=== PATIENT | male | born 1945 | race Two or more races ===

== ENCOUNTER 2019-11-07 19:12 | Inpatient (IN) | payer MEDICARE ==
[~2019-11-07] VITALS: Ht 172.7 cm; Wt 72.1 kg
--- NOTE | ~2019-11-07 | RHP ---
PATIENT: MATHEW MIXON MEDICAL RECORD: [id number] ACCOUNT: [id number] LOCATION:[facility]1115 : 47 ADMISSION DATE: 11/07/19 REHABILITATION HISTORY AND PHYSICAL EXAMINATION POST ADMISSION PHYSICIAN EXAMINATION ADMITTING DIAGNOSIS: Lower extremity amputation. HISTORY OF PRESENT ILLNESS: The patient is a 74-year-old gentleman admitted secondary to left lower extremity amputation, status post a left BKA, got a history of coronary artery disease, coronary artery bypass grafting, congestive heart failure, hypertension, hyperlipidemia, presented from home on 11/01/2019 with left foot infection after having a transmetatarsal amputation 45 days prior to this, it really never healed. He had bloody serosanguineous drainage from the area, could no longer bear weight. The patient's x-rays showed no signs of osteo at that time. He was admitted to [facility]. He was given 2 units of blood secondary to chronic anemia. He is , he had previously lived with his daughter and granddaughter. He does not speak much Cook Islander, but his granddaughter does. Been using an interpreter translator as needed. He had been moderately independent with ADLs and transfers with a wheelchair. He was home making meal preparation and personal care for med access and preparation. Currently, he is pretty fragile, risk for complications and needs to be involved in therapy and medical management. He is mod to max assist for ADLs and transfers. He wants to regain his strength and hopefully be able to transfer on his own to his wheelchair. COMORBIDITIES: Include anemia, cellulitis, congestive heart failure, chronic kidney disease, decrease in mobility, essential hypertension, fatigue, weakness. PAST MEDICAL HISTORY: Significant for coronary artery disease. He has got a history of heart failure, peripheral vascular disease, hypertension and hyperlipidemia. PAST SURGICAL HISTORY: Includes transmetatarsal amputation bilaterally. He is now status post left [id number] amputation. ALLERGIES: No known drug allergies. CURRENT MEDICATIONS: Include Lipitor 80 mg at dinner, he is on lisinopril 2.5 mg daily, MiraLax 17 grams in 8 ounces of water daily, he is on aspirin 81 mg daily, Trental 400 mg b.i.d. with meals, NovoLog 70/30 20 units prior to meals and at dinner, he is on a low-resistant sliding scale, Colace 100 mg b.i.d., Zofran 4 mg every 4 hours p.r.n., Nitrostat p.r.n., [place] 5/325 one tab every 4 to 6 hours p.r.n., Ancef 2 grams every 8 hours and senna as needed. HABITS: No alcohol or tobacco use. FAMILY HISTORY: Noncontributory. SOCIAL HISTORY: The patient hopes to return back home with his family and get back to his prior level of functioning. REVIEW OF SYSTEMS: GENERAL: Does complain of weakness and fatigue. HEENT: Denies cold, cough, or congestion. HISTORY AND PHYSICAL [id number] CARDIOVASCULAR: Has complained of some pain this morning in his chest region. PHYSICAL EXAMINATION: VITAL SIGNS: Stable. He is afebrile. GENERAL: An elderly gentleman in no acute distress upon exam. HEENT: Normocephalic and atraumatic. Mucosa moist. NECK: Supple. No lymphadenopathy. LUNGS: Clear in upper pop. HEART: Regular rate and rhythm. ABDOMEN: Benign. EXTREMITIES: No clubbing, cyanosis. Postop area looks pretty good at this time. He is noted to have a left bymxg-pom-mmvr amputation. NEUROLOGIC: He does have proximal muscle weakness. LABORATORY DATA: His white count is 7.4, H&H of 9.7 and 29.9, and platelet count is 443. His sodium is 134, potassium 4.0, BUN and creatinine of 15 and 1.2, and blood sugar is noted to be 67. ASSESSMENT: This is a 74-year-old gentleman, who presents to rehab with a working diagnosis of left [id number]-[id number]-[id number] amputation. The patient has potential to make improvement. We instituted the following multidisciplinary therapies including, but not limited to physical, occupational, respiratory, speech, nutritional services, prosthetics and orthotics. Given his complex medical condition and risks for more complications, rehabilitation services cannot be provided at a low level of care such a fpc facility. PLAN: 1. Admit to [facility] for inpatient therapy to include the following disciplines; A. Physical therapy to improve gait, all transfer skills and bed mobility to a modified independent level. B. Occupational therapy to improve activities of daily living. C. Case management to help with discharge planning and placement options. D. Nutrition to assist with nutritional needs. E. Rehabilitation nursing to assist in monitoring the patient's underlying medical conditions and to assist with any type of bowel or bladder management. 2. The patient's current medication and medical care will be continued. 3. Placed on standard fall precautions. 4. The patient's estimated length of stay is approximately 7-10 days. 5. We will discuss this patient during care team staff meeting this week. I am going to go ahead and check cardiac enzymes on this morning and will followup. TRANSINT:[id number] Voice Confirmation ID: [id number] DOCUMENT ID: [id number] MINDI notes whether there has been none or any medical/functional change since admission: - No change since preadmission screen. MINDI attests patient continues to be appropriate for IRF: - Continues to be appropriate. HISTORY AND PHYSICAL [id number] MATHEW MIXON JOHN SCOTT MD CC: [id number] DICTATION DATE: 11/08/19909 DAUB COLOR MIXER: 11/08/19938 ADM IN [facility] [address] [id number]
--- NOTE | 2019-11-07 20:00 | NUR ---
HERE FOR ADMISSION TO [facility] OF DR MONTESINOS. AWAKE AND ALERT. RESPIRATIONS UNLABORED. SPAINISH SPEAKING ONLY. INTERPRETOR PHONE IN ROOM FOR TRANSLATION. DAUGHTER SPEAKS SOME CENTRAL AFRICAN AND IS ABLE TO SIGN PAPERS AND ANSWER SOME QUESTIONS. SEE ADMISSION ASSESSMENT. NOTED LEFT BKA. SALINE LOCK INTACT TO LEFT AC WITH NO SIGNS OF INFILTRATION. INSTRUCTED ON USE OF CALL LIGHT. RETURN DEMONSTRATION DONE. FALL PRECAUTIONS IN PLACE.
[2019-11-07 21:12] VITALS: BP 181/73
[2019-11-07 22:45] VITALS: BP 181/73; BMI 24.2
[2019-11-07] MEDS ORDERED: BAYER CHEWABLE81 MG PO (23:32)
[2019-11-07] MEDS ORDERED: LIPITOR80 MG PO (23:33)
[2019-11-07] MEDS ORDERED: ANCEF/KEFZOL INJ1 GM IV (23:34)
[2019-11-07] MEDS ORDERED: COLACE100 MG PO (23:35)
[2019-11-07] MEDS ORDERED: MIRALAX17 GM PO (23:36)
[2019-11-07] MEDS ORDERED: EX-LAX15 MG PO (23:38)
[2019-11-07] MEDS ORDERED: HYDROCODON-ACE1 EAC7 PO (23:44)
[2019-11-07] MEDS ORDERED: LISINOPRIL2.5 MG PO (23:48)
--- NOTE | 2019-11-08 00:19 | NUR ---
SLEEPING WITH RESPRIAITONS UNLABORED. NO DISTRESS NOTED.
[2019-11-08] MEDS ORDERED: TRENTAL PO (02:40)
[2019-11-08] MEDS ORDERED: NOVOLOG 70-30 SQ (02:42)
--- NOTE | 2019-11-08 02:55 | NUR ---
CONTINUES SLEEPING WITH RESPIRATIONS UNALBORED. NO DISTRESS NOTED. ADAN PATENT. IV INTACT.
[2019-11-08 05:27] LABS: BILIRUBIN NEGATIVE (NEGATIVE); KETONE NEGATIVE (NEGATIVE); NITRITE NEGATIVE (NEGATIVE); UROBILINOGEN NORMAL (NORMAL)
[2019-11-08 05:28] LABS: BACTERIA FEW /hpf (NONE SEEN); EPITHELIAL CELLS 0-5 /hpf (0-5); YEAST >1+ WITH HYPHAE /hpf (NONE SEEN)
[2019-11-08 06:18] LABS: BASOPHILS 0.1 % (0-2); EOSINOPHILS 4.2 % (0-7); HEMATOCRIT 29.9 % (42.0-54.0); HEMOGLOBIN 9.7 g/dL (13.5-17.5); IMMATURE GRANULOCYTES 0.8 % (0-5); LYMPHOCYTES 19.9 % (15-50); MCH 26.6 pg (26.0-34.0); MCHC 32.4 g/dL (31.0-37.0); MCV 82.1 fL (80.0-100.0); MONOCYTES 5.6 % (2-11); NEUTROPHILS 69.4 % (40-80); PLATELET COUNT 443 10x3/uL (130-400); RBC 3.64 10x6/uL (4.20-6.10); RDW 18.5 % (11.5-14.5); WBC 7.4 10x3/uL (4.8-10.8)
[2019-11-08 06:22] LABS: ANION GAP 10.1 mmol/L (8-16); CALCIUM 8.8 mg/dL (8.5-10.1); CARBON DIOXIDE 26.9 mmol/L (21.0-32.0); CREATININE - SERUM 1.2 mg/dL (0.6-1.3)
--- NOTE | 2019-11-08 07:30 | NUR ---
SHIFT ASSMT COMPLETED.BREAKFAST GIVEN.
[2019-11-08 08:00] VITALS: BP 164/77
--- NOTE | 2019-11-08 08:45 | NUR ---
CO CHEST PAIN A 6 ON SCALE OF 1-10.LAB NOTIFIED FOR CE'S.EKG DONE. ON FLOOR.
--- NOTE | 2019-11-08 09:32 | NUR ---
LAB NOTIFIED OF NEEDING CE'S.STATED THEY WILL COME.
--- NOTE | 2019-11-08 09:40 | NUR ---
STATES PAIN IS GONE.CHEST PAIN SUBSIDED.
[2019-11-08 10:15] LABS: CKMB 0.9 U/L (0.0-3.6); CREATINE KINASE 53 UL (21-232); TROPONIN-I < 0.017 ng/mL (0.000-0.060)
[2019-11-08 14:09] VITALS: Ht 172.7 cm; Wt 72.1 kg
--- NOTE | 2019-11-08 15:36 | NUR ---
CARE TEAM MEETING: PATIENT IS NEW TO UNIT. HE WILL BE RA AT NEXT MEETING. WILL CONTINUE TO FOLLOW WITH PATIENT.
[2019-11-08 15:51] LABS: CKMB 1.1 U/L (0.0-3.6); CREATINE KINASE 58 UL (21-232); TROPONIN-I < 0.017 ng/mL (0.000-0.060)
--- NOTE | 2019-11-08 19:38 | NUR ---
RECEIVED PT LYING IN BED SUPINE EYES CLOSED RESTING. EASILY AROUSED WITH STIMULI. C/O GENERALIZED PAIN 5/10 REQUESTS PAIN MEDICATION. ASSISTED TO RESTROOM WITH MOD ASSIST. LEFT FOREARM IV WITHOUT REDNESS OR SWELLING. DRESSING INTACT. LEFT BKA DRESSING INTACT. NO SIGNS OF ACUTE DISTRESS NOTED. CALL LIGHT WITHIN REACH. FALL PRECAUTIONS IN PLACE. CPOC
[2019-11-08 20:47] VITALS: BP 167/77
[2019-11-08 23:37] LABS: CKMB 0.9 U/L (0.0-3.6); CREATINE KINASE 50 UL (21-232); TROPONIN-I 0.022 ng/mL (0.000-0.060)
--- NOTE | 2019-11-09 01:40 | NUR ---
PT LYING IN BED EYES CLOSED RESTING COMFORTABLY. RR EVEN AND UNLABORED. CALL LIGHT WITHIN REACH. FALL PRECAUTIONS IN PLACE. WILL CONTINUE TO MONITOR
--- NOTE | 2019-11-09 03:57 | NUR ---
PT LYING IN BED EYES CLOSED RESTING COMFORTABLY. RR EVEN AND UNLABORED. CALL LIGHT WITHIN REACH. CPOC
[2019-11-09 08:00] VITALS: BP 170/84
--- NOTE | 2019-11-09 19:05 | NUR ---
RECEIVED PT LYING IN BED EYES CLOSED RESTING COMFORTABLY. EASILY AROUSED WITH VERBAL STIMULI. LEFT FOREARM IV WITHOUT REDNESS OR SWELLING DRESSING AND SWAB CAPS INTACT. LEFT BKA DRESSING CLEAN, DRY, AND INTACT CHANGED TODAY. NO SIGNS OF ACUTE DISTRESS NOTED. CALL LIGHT AND URINAL WITHIN REACH. FALL PRECAUTIONS IN PLACE. CPOC
[2019-11-09 19:49] VITALS: BP 172/78
--- NOTE | 2019-11-10 00:49 | NUR ---
PT LYING IN BED SUPINE EYES CLOSED RESTING COMFORTABLY. HOB ELEVATED. RR EVEN AND UNLABORED. EMPTIED URINAL 300ML. CALL LIGHT WITHIN REACH. FALL PRECAUTIONS IN PLACE. CPOC
--- NOTE | 2019-11-10 03:17 | NUR ---
PT LYING IN BED AWAKE. REQUESTS COFFEE. DENIES ANY PAIN. NO SIGNS OF ACUTE DISTRESS NOTED. CALL LIGHT WITHIN REACH. FALL PRECAUTIONS IN PLACE. CPOC
[2019-11-10 07:50] VITALS: BP 142/71
[2019-11-10 07:59] LABS: ANION GAP 13.3 mmol/L (8-16); CALCIUM 8.6 mg/dL (8.5-10.1); CARBON DIOXIDE 25.7 mmol/L (21.0-32.0); CREATININE - SERUM 1.1 mg/dL (0.6-1.3)
--- NOTE | 2019-11-10 08:00 | NUR ---
PATIENT IS ALERT/ORIENT. GREENLANDIC SPEAKING. SPEAKS A LITTLE BIT OF JAPANESE. CALL LIGHT WITHIN REACH. VOICES NO NEEDS AT THIS TIME.
[2019-11-10 08:38] LABS: BASOPHILS 0 % (0-2); EOSINOPHILS 5.8 % (0-7); HEMATOCRIT 28.3 % (42.0-54.0); HEMOGLOBIN 9.1 g/dL (13.5-17.5); IMMATURE GRANULOCYTES 0.3 % (0-5); LYMPHOCYTES 27.2 % (15-50); MCH 26.5 pg (26.0-34.0); MCHC 32.2 g/dL (31.0-37.0); MCV 82.5 fL (80.0-100.0); MEAN PLATELET VOLUME 7.9 fL (7.4-10.4); MONOCYTES 5.8 % (2-11); NEUTROPHILS 60.9 % (40-80); PLATELET COUNT 441 10x3/uL (130-400); RBC 3.43 10x6/uL (4.20-6.10); RDW 18.7 % (11.5-14.5); WBC 6.3 10x3/uL (4.8-10.8)
--- NOTE | 2019-11-10 10:06 | NUR ---
PATIENT IN REHAB. WORKING WITH OCCUPATIONAL THERAPIST.
--- NOTE | 2019-11-10 18:45 | NUR ---
I have reviewed this patient and I concur with the Shift Assessment completed by the Licensed Practical Nurse today this shift.
--- NOTE | 2019-11-10 19:15 | NUR ---
RECEIVED PT LYING IN BED AWAKE. ALERT AND ORIENTED X4. DENIES ANY NEEDS OR PAIN. LEFT FOREARM IV WITHOUT REDNESS OR SWELLING. DRESSING AND SWAB CAPS INTACT. URINAL EMPTIED 400ML CLEAR YELLOW. NO SIGNS OF ACUTE DISTRESS NOTED. CALL LIGHT AND WATER WITHIN REACH. FALL PRECAUTIONS IN PLACE. CPOC
[2019-11-10 20:30] VITALS: BP 151/78
--- NOTE | 2019-11-10 23:50 | NUR ---
PT LYING IN BED ON RIGHT SIDE EYES CLOSED RESTING. RR EVEN AND UNLABORED. CALL LIGHT AND WATER WITHIN REACH. FALL PRECAUTIONS IN PLACE. CPOC
--- NOTE | 2019-11-11 03:18 | NUR ---
PT LYING IN BED ON LEFT SIDE EYES CLOSED RESTING. NO SIGNS OF ACUTE DISTRESS NOTED. WILL CONTINUE TO MONITOR
--- NOTE | 2019-11-11 05:59 | NUR ---
PT LYING IN BED EYES CLOSED RESTING QUIETLY. REMOVED OLD DRESSING LBKA. CLEANSED INCISION WITH WOUND CLEANSER, PAT DRY WITH 4X4, PAINTED WITH BETADINE, COVERED WITH BORDER GAUZE DRESSING. DATE, TIME, INITALED. INCISION WITH TAMI INTACT. WELL APPROXIMATED. NO REDNESS, SWELLING, OR DRAINAGE NOTED. NO ACUTE CHANGES IN CONDITION NOTED THIS SHIFT. CALL LIGHT AND WATER WITHIN REACH. FALL PRECAUTIONS IN PLACE. FSBS 144. WILL CONTINUE TO MONITOR
[2019-11-11 07:31] VITALS: BP 157/79
--- NOTE | 2019-11-11 13:29 | NUR ---
SITTING UP IN WC IN ROOM. SON IN VISITING HIM AND HELPING HIM SHAVE. IS ABLE TO TRANSFER BACK/FORTH FROM WC TO BED BY SELF. HE WOULD NOT LET NURSE HELP HIM.
--- NOTE | 2019-11-11 17:42 | NUR ---
NURSE ASST PT TO HAVE LARGE BM. HE WAXS VERY CONSTIPATED AND WAS GIVEN SUPPISITORY. SUCCESS.
[2019-11-11 19:49] VITALS: BP 140/66
--- NOTE | 2019-11-11 19:58 | NUR ---
AWAKE AND ALERT. RESTING IN BED WITH RESPIRATIONS UNLABORED. NO ACUTE DISTRESS NOTED. CALL LIGHT IN REACH. C JAVA DEVELOPER PHONE IN ROOM TO USE NEEDED.
--- NOTE | 2019-11-12 02:58 | NUR ---
SLEEPING WITH RESPIRATIONS UNLABORED. NO DISTRESS NOTED.
--- NOTE | 2019-11-12 05:11 | NUR ---
QUIET HOURS. NO ACUTE CHANGES IN CONDITION THIS SHIFT. DRESSING TO LEFT BKA SITE DRY AND INTACT. NO DISTRESS NOTED. CALL LIGHT IN REACH.
[2019-11-12 07:44] VITALS: BP 144/88
--- NOTE | 2019-11-12 13:20 | NUR ---
LAYING IN BED RESTING QUIETLY. SON HAS BEEN HERE VISITING TODAY. HE DENIES NEEDS. HAS INTURPRETER PHONE BY BED. CALL LIGHT IN REACH
[2019-11-12 19:34] VITALS: BP 133/61
--- NOTE | 2019-11-12 19:37 | NUR ---
AWAKE AND ALERT. RESTING IN BED WITH RESPRIATIONS UNLABORED. DRESSING TO LEFT BKA SITE DRY AND INTACT. LEFT FOREARM SALINE LOCK INTACT WITH NO SIGNS OF INFILTRATION. NO DISTRESS NOTED. CALL LIGHT IN REACH.
--- NOTE | 2019-11-12 19:40 | NUR ---
BLOOD SUGAR 65. ALERT AND ORIENTED. SKIN WARM AND DRY. HS SNACK GIVEN WITH PUDDING AND ORANGE JUICE AND CRACKERS.
--- NOTE | 2019-11-13 02:13 | NUR ---
SLEEPING WITH RESPIRATIONS UNLABORED. NO DISTRESS NOTED.
--- NOTE | 2019-11-13 03:30 | NUR ---
CONTINUES SLEEPING. NO DISTRESS NOTED.
--- NOTE | 2019-11-13 05:01 | NUR ---
QUIET HOURS. NO ACUTE CHANGES IN CONDITION THIS SHIFT. DRESSING INTACT TO LEFT BKA. NO DISTRESS NOTED.
[2019-11-13 08:00] VITALS: BP 132/55
[2019-11-13 08:28] LABS: BASOPHILS 0.5 % (0-2); EOSINOPHILS 5.2 % (0-7); HEMATOCRIT 29.7 % (42.0-54.0); HEMOGLOBIN 9.4 g/dL (13.5-17.5); IMMATURE GRANULOCYTES 0.3 % (0-5); LYMPHOCYTES 34.7 % (15-50); MCH 26.5 pg (26.0-34.0); MCHC 31.6 g/dL (31.0-37.0); MCV 83.7 fL (80.0-100.0); MEAN PLATELET VOLUME 7.9 fL (7.4-10.4); MONOCYTES 6.6 % (2-11); NEUTROPHILS 52.7 % (40-80); PLATELET COUNT 392 10x3/uL (130-400); RBC 3.55 10x6/uL (4.20-6.10); RDW 18.8 % (11.5-14.5); WBC 6.3 10x3/uL (4.8-10.8)
[2019-11-13 08:42] LABS: ANION GAP 11.8 mmol/L (8-16); CALCIUM 8.7 mg/dL (8.5-10.1); CARBON DIOXIDE 25.2 mmol/L (21.0-32.0); CREATININE - SERUM 1.1 mg/dL (0.6-1.3)
--- NOTE | 2019-11-13 13:31 | NUR ---
Nutrition Follow-up: Diet: Diabetic PO intake: ~75% average. Patient tells me that his appetite is "good." He denies needs from dietary at this time. Last BM: 11/11/19. Wt: 159# (11/08/19) Meds noted: miralax, novolog 70/30, SSI, senokot Labs noted: Na 133(L), Glu 133(H) Recommend continue current diet. RD following.
--- NOTE | 2019-11-13 20:00 | NUR ---
AWAKE AND ALERT. RESTING IN BED WITH RESPIRATIONS UNLABORED. DRESSING INTACT TO LEFT BKA. NO DISTRESS NOTED.
[2019-11-13 20:45] VITALS: BP 121/55
--- NOTE | 2019-11-14 00:10 | NUR ---
SLEEPING WITH RESPIRATIONS UNLABORED. NO DISTRESS NOTED.
--- NOTE | 2019-11-14 02:55 | NUR ---
CONTINUES SLEEPING WITH RESPIRATIONS UNLABORED. NO DISTRESS NOTED. CALL LIGHT IN REACH.
--- NOTE | 2019-11-14 04:52 | NUR ---
QUIET HOURS. NO ACUTE CHANGES IN CONDITION THIS SHIFT. RESTING IN BED WITH NO DISTRESS NOTED.
[2019-11-14 08:10] VITALS: BP 123/72
--- NOTE | 2019-11-14 19:05 | NUR ---
RECEIVED PT LYING IN BED AWAKE. ALERT AND ORIENTED X4. DENIES ANY PAIN OR NEEDS. LBA DRESSING INTACT. LEFT FOREARM SL WITHOUT REDNESS OR SWELLING. DRESSING INTACT. CALL LIGHT AND URNIAL WITHIN REACH. FALL PRECAUTIONS IN PLACE. CPOC
[2019-11-14 19:23] VITALS: BP 170/77
--- NOTE | 2019-11-14 23:11 | NUR ---
QUIET HOURS. PT LYING IN BED SUPINE EYES CLOSED RESTING QUIETLY. HOB ELEVATED. RR EVEN AND UNLABORED. CALL LIGHT AND URINAL WITHIN REACH. WILL CONTINUE TO MONITOR
--- NOTE | 2019-11-15 01:49 | NUR ---
PT LYING IN BED ON RIGHT SIDE EYES CLOSED RESTING. RR EVEN AND UNLABORED. WILL CONTINUE TO MONITOR
--- NOTE | 2019-11-15 04:21 | NUR ---
PT LYING IN BED EYES CLOSED RESTING. NO SIGNS OF ACUTE DISTRESS NOTED. CALL LIGHT WITHIN REACH.
--- NOTE | 2019-11-15 06:35 | NUR ---
PT SITTING UP IN BED WATCHING TV. MORNING SNACK PROVIDED MARIA DOLORES CRACKERS AND COFFEE. DENIES ANY PAIN OR NEEDS. CALL LIGHT AND URINAL WITHIN REACH. NO ACUTE CHANGES IN CONDITION NOTED THIS SHIFT. WILL CONTINUE TO MONITOR
[2019-11-15 07:47] LABS: BASOPHILS 0.5 % (0-2); EOSINOPHILS 4.9 % (0-7); HEMATOCRIT 32.2 % (42.0-54.0); HEMOGLOBIN 10.2 g/dL (13.5-17.5); IMMATURE GRANULOCYTES 0.3 % (0-5); LYMPHOCYTES 33.8 % (15-50); MCH 26.6 pg (26.0-34.0); MCHC 31.7 g/dL (31.0-37.0); MCV 83.9 fL (80.0-100.0); MEAN PLATELET VOLUME 8.1 fL (7.4-10.4); MONOCYTES 6.9 % (2-11); NEUTROPHILS 53.6 % (40-80); PLATELET COUNT 401 10x3/uL (130-400); RBC 3.84 10x6/uL (4.20-6.10); RDW 19.1 % (11.5-14.5); WBC 5.9 10x3/uL (4.8-10.8)
[2019-11-15 07:48] LABS: ANION GAP 9.8 mmol/L (8-16); CALCIUM 8.9 mg/dL (8.5-10.1); CREATININE - SERUM 1.1 mg/dL (0.6-1.3)
[2019-11-15 07:49] LABS: POTASSIUM - SERUM 4.8 mmol/L (3.5-5.1)
[2019-11-15 08:00] VITALS: BP 122/64
--- NOTE | 2019-11-15 08:00 | NUR ---
SHIFT ASSMT COMPLETED.BREAKFAST GIVEN.CL IN REACH.
--- NOTE | 2019-11-15 15:01 | NUR ---
CARE TEAM MEETING: PATIENT IS DOING WELL IN THERAPY. TENATIVE DC DATE IS 11/23/19. PATIENT WILL DC TO THE [facility] TO CONINUE HIS ANTIBIOTICS THEN WILL DC HOME. WILL CONTINUE TO FOLLOW WITH PATIENT.
--- NOTE | 2019-11-15 19:50 | NUR ---
PT LYING IN BED AWAKE. ALERT AND ORIENTED X4. DENIES ANY NEEDS OR PAIN. NO SIGNS OF ACUTE DISTRESS NOTED. LEFT FOREARM IV WITHOUT REDNESS OR SWELLING. DRESSING AND SWAB CAPS INTACT. LBKA DRESSING CLEAN AND INTACT. CALL LIGHT AND URINAL WITHIN REACH. FALL PRECAUTIONS IN PLACE. CPOC
[2019-11-15 19:52] VITALS: BP 153/71
--- NOTE | 2019-11-15 20:15 | NUR ---
RESITED IV TO RIGHT FOREARM 22G X1 ATTEMPT. FLUSHES AND DRAWS WITHOUT DIFFICULTY. DRESSING AND SWAB CAPS INTACT. LEFT FOREARM IV DC WITH CATH TIP INTACT. PRESSURE DRESSING APPLIED. PT TOLERATED WELL.
--- NOTE | 2019-11-15 20:35 | NUR ---
REMOVED OLD LBKA DRESSING. SCANT AMOUNT OF DARK RED DRAINAGE NOTED. INCISION WITHOUT REDNESS OR SWELLING. SUTURE LINE WELL APPROXIMATED. TAMI INTACT. CLEANSED INCISION WITH WOUND CLEANSER, PAT DRY 4X4, PAINTED INCISION WITH BETADINE, COVERED WITH BORDER GAUZE DRESSING. DATE, TIME, INITIALED. PT TOLERATED WELL.
--- NOTE | 2019-11-15 22:57 | NUR ---
PT LYING IN BED ON RIGHT SIDE EYES CLOSED RESTING QUIETLY. RR EVEN AND UNLABORED. CALL LIGHT AND URINAL WITHIN REACH. WILL CONTINUE TO MONITOR
--- NOTE | 2019-11-16 03:23 | NUR ---
PT LYING IN BED ON LEFT SIDE EYES CLOSED RESTING. RR EVEN AND UNLABORED. 800ML EMPTIED FROM URINAL. CALL LIGHT WITHIN REACH. WILL CONTINUE TO MONITOR
--- NOTE | 2019-11-16 05:52 | NUR ---
LYING IN BED WATCHING MORNING NEWS. DENIES ANY NEEDS OR PAIN. FSBS 98. CALL LIGHT AND COFFEE WITHIN REACH. FALL PRECAUTIONS IN PLACE. CPOC
[2019-11-16 08:10] VITALS: BP 143/85
[2019-11-16 19:34] VITALS: BP 136/57
--- NOTE | 2019-11-16 19:51 | NUR ---
AWAKE AND ALERT. RESTING IN BED WITH RESPIRATIONS UNLABORED. NO DISTRESS NOTED. CALL LIGHT IN REACH. DRESSING INTACT TO LEFT BKA SITE.
--- NOTE | 2019-11-17 01:49 | NUR ---
SLEEPING WITH RESPIRAITONS UNLABORED. NO DISTRESS NOTED. CALL LIGHT IN REACH.
--- NOTE | 2019-11-17 03:36 | NUR ---
DRESSING CHANGE DONE TO LEFT BKA. STATES HE WAS HAVING PAIN AT BKA SITE. MEDICATED FOR PAIN. SEE MAR. NO ACUTE DISTRESS NOTED.
--- NOTE | 2019-11-17 05:15 | NUR ---
RESTING QUIETLY. NO ACUTE CHANGES IN CONDITION THIS SHIFT. RESTING IN BED WITH NO DISTRESS NOTED. RIGHT ARM SALINE LOCK INTACT. DRESSING INTACT TO LEFT BKA.
[2019-11-17 07:59] LABS: ANION GAP 12.4 mmol/L (8-16); CALCIUM 8.9 mg/dL (8.5-10.1); CARBON DIOXIDE 25.6 mmol/L (21.0-32.0); CREATININE - SERUM 1.1 mg/dL (0.6-1.3)
[2019-11-17 08:00] VITALS: BP 136/72
[2019-11-17 08:14] LABS: BASOPHILS 0.5 % (0-2); EOSINOPHILS 5.2 % (0-7); HEMATOCRIT 30.4 % (42.0-54.0); HEMOGLOBIN 9.6 g/dL (13.5-17.5); IMMATURE GRANULOCYTES 0.2 % (0-5); LYMPHOCYTES 31.2 % (15-50); MCH 26.6 pg (26.0-34.0); MCHC 31.6 g/dL (31.0-37.0); MCV 84.2 fL (80.0-100.0); MEAN PLATELET VOLUME 8.3 fL (7.4-10.4); MONOCYTES 7.5 % (2-11); NEUTROPHILS 55.4 % (40-80); RBC 3.61 10x6/uL (4.20-6.10); WBC 6.4 10x3/uL (4.8-10.8)
[2019-11-17 08:17] LABS: PLATELET COUNT 313 10x3/uL (130-400)
--- NOTE | 2019-11-17 13:52 | NUR ---
LAYING IN BED WATCHING TV. IS COOPERATIVE TO SIMPLE REQUESTS. LLE STUMP DSG IS DRY AND INTACT. USES URINAL IN BED. CALL LIGHT IN REACH
[2019-11-17 19:45] VITALS: BP 113/55
--- NOTE | 2019-11-17 19:45 | NUR ---
RECEIVED PT LYING IN BED ON RIGHT SIDE EYES CLOSED RESTING. EASILY AROUSED WITH STIMULI. DENIES ANY PAIN. ALERT AND ORIENTED X3. RIGHT FOREARM SALINE LOCK WITHOUT REDNESS OR SWELLING. DRESSING AND SWAB CAPS INTACT. LEFT BKA DRESSING INTACT. VS STABLE. ASSESSMENT COMPLETE. CALL LIGHT AND URINAL WITHIN REACH. FALL PRECAUTIONS IN PLACE. CPOC
--- NOTE | 2019-11-17 21:50 | NUR ---
REMOVED DRESSING LEFT BKA. SCANT AMOUNT BLOODY DRAINAGE. CLEANSED INCISION WITH WOUND CLEANSER, PAT DRY 4X4, PAINTED WITH BETADINE. REMOVED 18 TAMI PER ORDER. STERI STRIPS APPLIED. INCISION WELL APPROXIMATED. LEFT INCISON OPEN TO AIR. PT TOLERATED WELL.
--- NOTE | 2019-11-18 00:18 | NUR ---
QUIET HOURS. PT LYING IN BED ON RIGHT SIDE EYES CLOSED RESTING QUIETLY. RR EVEN AND UNLABORED. CALL LIGHT AND URINAL WITHIN REACH. WILL CONTINUE TO MONITOR
--- NOTE | 2019-11-18 03:20 | NUR ---
PT APPEARS TO BE SLEEPING COMFORTABLY ON RIGHT SIDE. RR EVEN AND UNLABORED. CALL LIGHT AND URINAL WITHIN REACH. FALL PRECAUTIONS IN PLACE. CPOC
--- NOTE | 2019-11-18 05:05 | NUR ---
PT SITTING UP IN BED WATCHING MORNING NEWS EATING CRACKERS WITH COFFEE. FSBS 183. DENIES ANY PAIN. NO ACUTE CHANGES IN CONDITION NOTED THIS SHIFT. CALL LIGHT AND URINAL WITHIN REACH. FALL PRECAUTIONS IN PLACE. CPOC
[2019-11-18 07:00] VITALS: BP 139/74
--- NOTE | 2019-11-18 07:30 | NUR ---
MONEG APPLIED D/T RT SIDE OUTER CORNER OF INCISION DRAINING.
--- NOTE | 2019-11-18 08:00 | NUR ---
SHIFT ASSMT COMPLETED.
--- NOTE | 2019-11-18 16:00 | NUR ---
DRSG REMAINS INTACT.
[2019-11-18 20:15] VITALS: BP 133/52
--- NOTE | 2019-11-18 20:15 | NUR ---
RECEIVED PT LYING IN BED ON RIGHT SIDE EYES CLOSED RESTING. EASILY AROUSED WITH STIMULI. ALERT AND ORIENTED X4. DENIES ANY PAIN. VS STABLE. ASSESSMENT COMPLETE. RIGHT FOREARM IV LEAKING WHEN FLUSHED. D/C WITH CATH TIP INTACT. PRESSURE DRESSING APPLIED. LEFT BKA DRESSING CLEAN AND INTACT. CALL LIGHT AND WATER WITHIN REACH. FALL PRECAUTIONS IN PLACE. CPOC
--- NOTE | 2019-11-18 20:45 | NUR ---
STARTED IV LEFT FOREARM 22G X1 ATTEMPT. IV FLUSHES AND DRAWS WITHOUT DIFFICULTY. DRESSING INTACT. PT TOLERATED WELL.
--- NOTE | 2019-11-18 21:45 | NUR ---
IV COMPLETE. FLUSHED WITH 10ML NS. SWAB CAP APPLIED. PT POSITIONED ON LEFT SIDE RESTING COMFORTABLY. NO SIGNS OF ACUTE DISTRESS NOTED. HS SNACK PROVIDED. CALL LIGHT AND WATER WITHIN REACH. FALL PRECAUTIONS IN PLACE. CPOC
--- NOTE | 2019-11-19 01:43 | NUR ---
PT LYING IN BED ON LEFT SIDE EYES CLOSED RESTING. RR EVEN AND UNLABORED. CALL LIGHT WITHIN REACH. FALL PRECAUTIONS IN PLACE. WILL CONTINUE TO MONITOR
--- NOTE | 2019-11-19 04:25 | NUR ---
PT SITTING UP IN BED WATCHING TV DRINKING COFFEE. DENIES ANY PAIN OR NEEDS. CALL LIGHT WITHIN REACH. CPOC
[2019-11-19 08:00] VITALS: BP 138/76
--- NOTE | 2019-11-19 08:00 | NUR ---
SHIFT ASSMT COMPLETED.CL IN REACH.
--- NOTE | 2019-11-19 12:00 | NUR ---
UP IN CHAIR EATING LUNCH.
--- NOTE | 2019-11-19 18:58 | NUR ---
RECEIVED PT SITTING UP IN BED WATCHING TV. ALERT AND ORIENTED X4. LEFT FOREARM IV WITHOUT REDNESS OR SWELLING. DRESSING AND SWAB CAPS INTACT. LBKA DRESSING INTACT. DENIES ANY NEEDS OR PAIN. NO SIGNS OF ACUTE DISTRESS NOTED. CALL LIGHT AND WATER WITHIN REACH. FALL PRECAUTIONS IN PLACE. CPOC
[2019-11-19 20:20] VITALS: BP 138/73
--- NOTE | 2019-11-20 01:01 | NUR ---
PT LYING IN BED LEFT SIDE EYES CLOSED RESTING. RR EVEN AND UNLABORED. CALL LIGHT WITHIN REACH. FALL PRECAUTIONS IN PLACE. CPOC
--- NOTE | 2019-11-20 03:20 | NUR ---
PT LYING IN BED SUPINE EYES CLOSED RESTING. RR EVEN AND UNLABORED. URINAL EMPTIED 400ML. CALL LIGHT AND URINAL WITHIN REACH. BED ALARM ON. WILL CONTINUE TO MONITOR
--- NOTE | 2019-11-20 05:15 | NUR ---
ASSISTED PT TO RESTROOM WITH SBA. INSTRUCTED TO PULL NURSE CALL WHEN FINISHED. PT RETURN DEMOSTRATION.
--- NOTE | 2019-11-20 05:30 | NUR ---
ASSISTED TRANSFER FROM W/C TO BED WITH CONTACT GUARD. DENIES ANY OTHER NEEDS. NO ACUTE CHANGES IN CONDITION NOTED THIS SHIFT. CALL LIGHT AND WATER WITHIN REACH. FALL PRECAUTIONS IN PLACE. CPOC
--- NOTE | 2019-11-20 06:16 | NUR ---
REMOVED OLD DRESSING SCANT AMOUNT OF SEROUS DRAINAGE. INCISION WITH STERI STRIPS NO REDNESS OR SWELLING. CLEANSED WITH WOUND CLEANSER, PAT DRY 4X4, PAINTED WITH BETADINE, COVERED WITH BORDER GAUZE DRESSING. DATE, TIME, INITIALED. PT TOLERATED WELL
[2019-11-20 06:34] LABS: ANION GAP 11.3 mmol/L (8-16); CALCIUM 9.2 mg/dL (8.5-10.1); CARBON DIOXIDE 26.4 mmol/L (21.0-32.0); CREATININE - SERUM 1.1 mg/dL (0.6-1.3); POTASSIUM - SERUM 4.7 mmol/L (3.5-5.1)
[2019-11-20 06:51] LABS: BASOPHILS 0.7 % (0-2); HEMATOCRIT 31.7 % (42.0-54.0); HEMOGLOBIN 9.7 g/dL (13.5-17.5); IMMATURE GRANULOCYTES 0.3 % (0-5); MCH 26.1 pg (26.0-34.0); MCHC 30.6 g/dL (31.0-37.0); MCV 85.4 fL (80.0-100.0); MEAN PLATELET VOLUME 8.8 fL (7.4-10.4); MONOCYTES 8.8 % (2-11); NEUTROPHILS 49.2 % (40-80); PLATELET COUNT 278 10x3/uL (130-400); RBC 3.71 10x6/uL (4.20-6.10); RDW 19.2 % (11.5-14.5); WBC 6.1 10x3/uL (4.8-10.8)
--- NOTE | 2019-11-20 11:03 | NUR ---
Nutrition Follow-up: Diet: Diabetic PO intake: 75-100% Last BM: 11/20/19. Wt: 159# (11/08/19) Meds noted: miralax, Novolog 70/30, SSI. Labs noted: POC Glu 218(H), Glu 220(H) Recommend continue current diet. RD following.
--- NOTE | 2019-11-20 13:52 | NUR ---
IN THERAPY. FAMILY HAS VISITED TODAY. CONSULT FOR PICC/CVL HAS BEEN MADE SINCE HE WILL BE GOING HOME ON IV ABX.
--- NOTE | 2019-11-20 15:16 | NUR ---
SITTING UP IN BED WATCHING TV. DENIES NEEDS OR C/O. CALL LIGHT IN REACH
--- NOTE | 2019-11-20 19:03 | NUR ---
RECEIVED PT LYING IN BED ON RIGHT SIDE EYES CLOSED RESTING. RR EVEN AND UNLABORED. EASILY AROUSED WITH VERBAL STIMULI. DENIES ANY NEEDS OR PAIN. LEFT FOREARM IV WITHOUT REDNESS OR SWELLING. DRESSING INTACT. LBKA DRESSING INTACT. CALL LIGHT AND URINAL WITHIN REACH. FALL PRECAUTIONS IN PLACE. CPOC
[2019-11-20 19:25] VITALS: BP 135/44
--- NOTE | 2019-11-21 00:27 | NUR ---
PT LYING IN BED ON RIGHT SIDE EYES CLOSED RESTING. RR EVEN AND UNLABORED. CALL LIGHT WITHIN REACH. FALL PRECAUTIONS IN PLACE. WILL CONTINUE TO MONITOR
--- NOTE | 2019-11-21 03:45 | NUR ---
PT LYING IN BED ON LEFT SIDE EYES CLOSED RESTING. RR EVEN AND UNLABORED. 600ML EMPTIED FROM URINAL. CALL LIGHT WITHIN REACH. BED ALARM ON . CPOC
[2019-11-21 08:01] VITALS: BP 154/56
--- NOTE | 2019-11-21 08:22 | NUR ---
Order received for PICC placement on patient to be discharged on [facility]. On arrival, using translation, PICC discussed with patient and written consent obtained. Using site rite ultrasound, left upper arm basilic vein identified. Timeout with patient using armbands: name, date of and allergies verified. Prep, drape and 1% xylocaine to area. Vein accessed and double lumen PICC inserted to 47 cm. Both lumens flush and with good blood return. Site dressed with statlock, biopatch and tegaderm dressing. CXR ordered for placement verification.
--- NOTE | 2019-11-21 12:29 | NUR ---
SITTING UP IN WC IN ROOM FOR LUNCH. FAMILY IS VISITING. DENIES NEEDS OR C/O. VASCULAR NURSE PLACED A TRIPLE LUMEN PICC LINE THIS AM FOR HOME IV ABX USE. CALL LIGHT IN REACH
--- NOTE | 2019-11-21 14:36 | NUR ---
[facility]. WILL CONTINUE TO FOLLOW WITH PATIENT.
[2019-11-21 19:37] VITALS: BP 146/58
--- NOTE | 2019-11-21 19:43 | NUR ---
RECIEVED UP IN BED WITH EYES OPEN AND TV ON. ALERT AND ORIENTED X4. REQUIRES SBA. PICC LINE TO LT UPPER ARM. LT BKA WITH DSG CDI. DENIES ANY NEEDS AT THIS TIME.
[2019-11-22 08:00] VITALS: BP 113/55
--- NOTE | 2019-11-22 08:00 | NUR ---
SHIFT ASSMT COMPLETED.
--- NOTE | 2019-11-22 13:54 | NUR ---
CARE TEAM MEETING: PATIENT IS DOING WELL IN THERAPY. REFERRALS TO SNF HAS BEEN SENT. PATIENT WILL NEED IV ANTIBIOTICS UNTIL 12/01/19 TO COMPLETE IV TREATMENT. WILL CONTINUE TO FOLLOW WITH PATIENT.
--- NOTE | 2019-11-22 18:47 | NUR ---
RECEIVED PT SITTING UP IN BED WATCHING TV. ALERT AND ORIENTED X4. DENIES ANY NEEDS OR PAIN. NO SIGNS OF ACUTE DISTRESS NOTED. CALL LIGHT AND URINAL WITHIN REACH. FALL PRECAUTIONS IN PLACE. CPOC
[2019-11-22 19:08] VITALS: BP 126/49
--- NOTE | 2019-11-23 00:48 | NUR ---
PT LYING IN BED ON RIGHT SIDE EYES CLOSED RESTING. RR EVEN AND UNLABORED. CALL LIGHT WITHIN REACH. FALL PRECAUTIONS IN PLACE. CPOC
--- NOTE | 2019-11-23 02:46 | NUR ---
PT LYING IN BED ON LEFT SIDE EYES CLOSED RESTING. RR EVEN AND UNLABORED. CALL LIGHT WITHIN REACH. FALL PRECAUTIONS IN PLACE. CPOC
--- NOTE | 2019-11-23 04:30 | NUR ---
EMPTIED 700ML CLEAR YELLOW URINE FROM URINAL. DENIES ANY OTHER NEEDS. NO ACUTE CHANGES IN CONDITION NOTED. CALL LIGHT, WATER, AND URINAL WITHIN REACH. WILL CONTINUE TO MONITOR
[2019-11-23 07:58] VITALS: BP 138/70
--- NOTE | 2019-11-23 08:00 | NUR ---
SHIFT ASSMT COMPLETED.
[2019-11-23] MEDS ORDERED: HYDROCODON-ACE1 EA10 PO (08:46)
--- NOTE | 2019-11-23 10:04 | NUR ---
PATIENT HAS BEEN ACCEPTED TO [facility] AND WILL DC THERE TODAY VIA [facility]. [facility]AZ HAS BEEN SIGNED, IMM SERVED AND EXPLAINED, ONE GIVEN TO PATIENT AND ONE FILED IN CHART.AT DISCHARGE FROM THE FACILITY PATIENT WILL NEED AN APPOINTMENT WITH DR. RAFAL GOOD AND HIS PCP.DC INSTRUCTIONS HAVE BEEN FAXED TO SNF AND REVIEWED WITH PATIENT PER PRIMARY NURSE. COMPARE DATA REVIEWED PATIENT VOICED UNSDERSTANDING.
== END 2019-11-23 16:45 | DRG 559 ==
LOC: D.REHAB 19:12
PROVIDERS: ADMIT Emergency Medicine; ATTEND Emergency Medicine
DX: Z47.81 Encounter for orthopedic aftercare following surgical amputation (principal); A41.9 Sepsis, unspecified organism; I13.0 Hypertensive heart and chronic kidney disease with heart failure and stage 1 through stage 4 chronic kidney disease, or unspecified chronic kidney disease; L03.90 Cellulitis, unspecified; Z89.512 Acquired absence of left leg below knee; I25.10 Atherosclerotic heart disease of native coronary artery without angina pectoris; E78.5 Hyperlipidemia, unspecified; I50.9 Heart failure, unspecified; N18.9 Chronic kidney disease, unspecified; D64.9 Anemia, unspecified; R53.83 Other fatigue; R53.1 Weakness; J98.2 Interstitial emphysema